=== PATIENT | male | born 1940 | race Caucasian/White ===

== ENCOUNTER 2016-11-02 10:26 | Outpatient (CLI) | payer MEDICARE, OTHER | END 2016-11-02 10:27 | disposition home or self-care (01) | DX: I48.0 Paroxysmal atrial fibrillation (principal) ==

== ENCOUNTER 2016-12-29 15:43 | Outpatient (CLI) | payer MEDICARE, OTHER | END 2016-12-29 15:44 | DX: I48.0 Paroxysmal atrial fibrillation (principal) ==

== ENCOUNTER 2017-01-05 10:49 | Outpatient (CLI) | payer MEDICARE, OTHER | END 2017-01-05 10:50 | disposition home or self-care (01) | DX: I48.0 Paroxysmal atrial fibrillation (principal) ==

== ENCOUNTER 2017-02-08 09:36 | Outpatient (CLI) | payer MEDICARE, OTHER | END 2017-02-08 09:37 | disposition home or self-care (01) | DX: I48.0 Paroxysmal atrial fibrillation (principal); I48.91 Unspecified atrial fibrillation; R73.01 Impaired fasting glucose; N18.9 Chronic kidney disease, unspecified; I25.10 Atherosclerotic heart disease of native coronary artery without angina pectoris; I50.9 Heart failure, unspecified; Z76.89 Persons encountering health services in other specified circumstances; D64.9 Anemia, unspecified; E78.5 Hyperlipidemia, unspecified; I12.9 Hypertensive chronic kidney disease with stage 1 through stage 4 chronic kidney disease, or unspecified chronic kidney disease ==

== ENCOUNTER 2017-02-21 10:38 | Outpatient (CLI) | payer MEDICARE, OTHER | END 2017-02-21 10:39 | disposition home or self-care (01) | DX: N40.1 Benign prostatic hyperplasia with lower urinary tract symptoms (principal); R97.20 Elevated prostate specific antigen [PSA] ==

== ENCOUNTER 2017-04-26 14:51 | Outpatient (CLI) | payer MEDICARE, OTHER | END 2017-04-26 14:52 | disposition home or self-care (01) | LOC: LAB.F 14:51 | PROVIDERS: ATTEND Family Medicine | DX: I48.0 Paroxysmal atrial fibrillation (principal) | CPT/HCPCS: 85610 ==

== ENCOUNTER 2017-05-27 10:14 | Outpatient (CLI) | payer MEDICARE, OTHER | END 2017-05-27 10:15 | disposition home or self-care (01) | LOC: LAB.F 10:14 | PROVIDERS: ATTEND Family Medicine | DX: I48.0 Paroxysmal atrial fibrillation (principal) | CPT/HCPCS: 85610 ==

== ENCOUNTER 2017-05-31 09:49 | Outpatient (CLI) | payer MEDICARE, OTHER ==
[2017-05-31 19:40] LABS: BUN - BLOOD UREA NITROGEN 28 mg/dL (6-20); CARBON DIOXIDE - CO2 29 mmol/L (21-32); CHLORIDE 104 mmol/L (101-111); CHOL/HDL RATIO 3.6 (<5.0); CHOLESTEROL 114 mg/dL; CREATININE 1.3 mg/dL (0.6-1.2); GFR - MDRD 53 (>89); GLUCOSE 95 mg/dL (70-100); HDL CHOLESTEROL 32 mg/dL; LDL CHOLESTEROL,DIRECT 70 mg/dL; LDL/HDL RATIO 1.8 (<3.6); PHOSPHORUS 2.9 mg/dL (2.5-4.6); SODIUM 141 mmol/L (135-145); TRIGLYCERIDES 129 mg/dL; VLDL CHOLESTEROL 26 mg/dL
== END 2017-05-31 09:50 | disposition home or self-care (01) ==
LOC: LAB.F 09:49
PROVIDERS: ATTEND Internal Medicine Cardiovascular Disease
DX: I50.22 Chronic systolic (congestive) heart failure (principal); E78.5 Hyperlipidemia, unspecified; I48.2 Chronic atrial fibrillation; I25.10 Atherosclerotic heart disease of native coronary artery without angina pectoris
CPT/HCPCS: 36415; 80061; 80069; 80162; 82550; 83880; 84450; 84460

== ENCOUNTER 2017-06-28 12:47 | Outpatient (CLI) | payer MEDICARE, OTHER | END 2017-06-28 12:48 | disposition home or self-care (01) | LOC: LAB.F 12:47 | PROVIDERS: ATTEND Family Medicine | DX: I48.0 Paroxysmal atrial fibrillation (principal) | CPT/HCPCS: 85610 ==

== ENCOUNTER 2017-08-01 14:01 | Outpatient (CLI) | payer MEDICARE, OTHER | END 2017-08-01 14:02 | disposition home or self-care (01) | LOC: LAB.F 14:01 | PROVIDERS: ATTEND Family Medicine | DX: I48.0 Paroxysmal atrial fibrillation (principal) | CPT/HCPCS: 85610 ==

== ENCOUNTER 2017-08-26 13:12 | Outpatient (CLI) | payer MEDICARE, OTHER | END 2017-08-26 13:13 | disposition home or self-care (01) | LOC: LAB.F 13:12 | PROVIDERS: ATTEND Family Medicine | DX: I48.0 Paroxysmal atrial fibrillation (principal) | CPT/HCPCS: 85610 ==

== ENCOUNTER 2017-09-27 10:10 | Outpatient (CLI) | payer MEDICARE, OTHER | END 2017-09-27 10:11 | disposition home or self-care (01) | LOC: LAB.F 10:10 | PROVIDERS: ATTEND Family Medicine | DX: I48.0 Paroxysmal atrial fibrillation (principal) | CPT/HCPCS: 85610 ==

== ENCOUNTER 2017-10-27 13:21 | Outpatient (CLI) | payer MEDICARE, OTHER | END 2017-10-27 13:22 | disposition home or self-care (01) | LOC: LAB.F 13:21 | PROVIDERS: ATTEND Family Medicine | DX: I48.0 Paroxysmal atrial fibrillation (principal) | CPT/HCPCS: 85610 ==

== ENCOUNTER 2017-12-09 13:23 | Outpatient (CLI) | payer MEDICARE, OTHER | END 2017-12-09 13:24 | disposition home or self-care (01) | LOC: LAB.F 13:23 | PROVIDERS: ATTEND Family Medicine | DX: I48.0 Paroxysmal atrial fibrillation (principal) | CPT/HCPCS: 85610 ==

== ENCOUNTER 2017-12-23 09:55 | Outpatient (CLI) | payer MEDICARE, OTHER | END 2017-12-23 09:56 | disposition home or self-care (01) | LOC: LAB.F 09:55 | PROVIDERS: ATTEND Family Medicine | DX: I48.0 Paroxysmal atrial fibrillation (principal) | CPT/HCPCS: 85610 ==

== ENCOUNTER 2018-01-27 10:58 | Outpatient (CLI) | payer MEDICARE, OTHER | END 2018-01-27 10:59 | disposition home or self-care (01) | LOC: LAB.F 10:58 | PROVIDERS: ATTEND Family Medicine | DX: I48.0 Paroxysmal atrial fibrillation (principal) | CPT/HCPCS: 85610 ==

== ENCOUNTER 2018-01-30 10:00 | Outpatient (CLI) | payer MEDICARE, OTHER ==
[2018-01-30 17:38] LABS: BILIRUBIN,URINE NEGATIVE (NEGATIVE); GLUCOSE, URINE (UA) NEGATIVE (NEGATIVE); KETONES,URINE (UA) NEGATIVE (NEGATIVE); LEUKOCYTE ESTERASE, URINE SMALL (NEGATIVE); NITRITE,URINE NEGATIVE (NEGATIVE); OCCULT BLOOD,URINE NEGATIVE (NEGATIVE); PROTEIN,URINE NEGATIVE (NEGATIVE); UROBILINOGEN,URINE 0.2 (NORMAL) E.U./dL (NORMAL)
[2018-01-30 17:58] LABS: BASOPHILS % (AUTO) 0.3 %; EOSINOPHILS # (AUTO) 0.1 10^3/uL (0.0-0.7); EOSINOPHILS % (AUTO) 1.4 %; LYMPHOCYTES # (AUTO) 2.2 10^3/uL (1.5-3.5); LYMPHOCYTES % (AUTO) 26.1 %; MEAN CORPUSCULAR HEMOGLOBIN 30.5 pg (27.0-31.0); MEAN CORPUSCULAR HGB CONC 32.9 g/dL (32.0-36.0); MEAN CORPUSCULAR VOLUME 92.5 fL (80.0-94.0); MEAN PLATELET VOLUME 10.3 fL (7.4-11.4); MONOCYTES # (AUTO) 0.7 10^3/uL (0.0-1.0); MONOCYTES % (AUTO) 8.9 %; NEUTROPHILS # (AUTO) 5.2 10^3/uL (1.5-6.6); NEUTROPHILS % (AUTO) 63.3 %; PLT - PLATELET COUNT 133 10^3/uL (130-450); RED BLOOD COUNT 4.61 10^6/uL (4.70-6.10); RED CELL DISTRIBUTION WIDTH 14.1 % (12.0-15.0); WHITE BLOOD COUNT 8.3 x10^3/uL (4.8-10.8)
[2018-01-30 18:25] LABS: ALBUMIN 3.8 g/dL (3.2-5.5); ALBUMIN/GLOBULIN RATIO 1.4 (1.0-2.2); ALKALINE PHOSPHATASE 57 IU/L (42-121); ALT ALANINE AMINOTRANSFERASE 28 IU/L (10-60); AST ASPARTATE AMINOTRANSFERASE 26 IU/L (10-42); BUN - BLOOD UREA NITROGEN 23 mg/dL (6-20); CALCIUM 8.7 mg/dL (8.5-10.3); CARBON DIOXIDE - CO2 28 mmol/L (21-32); CHLORIDE 106 mmol/L (101-111); CHOL/HDL RATIO 3.5 (<5.0); CHOLESTEROL 106 mg/dL; CREATININE 1.4 mg/dL (0.6-1.2); GFR - MDRD 49 (>89); GLUCOSE 100 mg/dL (70-100); HDL CHOLESTEROL 30 mg/dL; LDL CHOLESTEROL,CALCULATED 55 mg/dL; LDL/HDL RATIO 1.8 (<3.6); SODIUM 141 mmol/L (135-145); TOTAL PROTEIN 6.5 g/dL (6.7-8.2); VLDL CHOLESTEROL 21 mg/dL
[2018-01-30 18:32] LABS: CLARITY,URINE CLEAR (CLEAR)
[2018-01-30 18:50] LABS: BACTERIA,URINE None Seen /HPF (None Seen); RBC,URINE None Seen /HPF (0-5); SQUAMOUS EPITHELIAL CELL,UR NONE SEEN (<= Few)
[2018-01-30 18:51] LABS: CASTS, URINE 0-2 Hyaline Casts /LPF; MUCUS,URINE Few Strands
[2018-01-30 19:19] LABS: HB2 TOTAL 15.1 g/dL; HEMOGLOBIN A1C 0.61 g/dL; HEMOGLOBIN A1C % 5.8 % (4.6-6.2)
== END 2018-01-30 10:01 | disposition home or self-care (01) ==
LOC: LAB.F 10:00
PROVIDERS: ATTEND Family Medicine
DX: I25.10 Atherosclerotic heart disease of native coronary artery without angina pectoris (principal); R73.01 Impaired fasting glucose; E78.5 Hyperlipidemia, unspecified; I48.91 Unspecified atrial fibrillation; N18.9 Chronic kidney disease, unspecified; I12.9 Hypertensive chronic kidney disease with stage 1 through stage 4 chronic kidney disease, or unspecified chronic kidney disease; R97.20 Elevated prostate specific antigen [PSA]
CPT/HCPCS: 36415; 80053; 80061; 81001; 83036; 83721; 84153; 85025

== ENCOUNTER 2018-02-02 08:00 | Outpatient (CLI) | payer MEDICARE, OTHER | END 2018-02-02 23:59 | disposition home or self-care (01) | LOC: LAB.R 08:00 | PROVIDERS: ATTEND Family Medicine | DX: N39.0 Urinary tract infection, site not specified (principal); I48.91 Unspecified atrial fibrillation; N18.9 Chronic kidney disease, unspecified; I12.9 Hypertensive chronic kidney disease with stage 1 through stage 4 chronic kidney disease, or unspecified chronic kidney disease | CPT/HCPCS: 87077; 87086 ==

== ENCOUNTER 2018-02-28 12:17 | Outpatient (CLI) | payer MEDICARE, OTHER | END 2018-02-28 12:18 | disposition home or self-care (01) | LOC: LAB.F 12:17 | PROVIDERS: ATTEND Family Medicine | DX: I48.0 Paroxysmal atrial fibrillation (principal) | CPT/HCPCS: 85610 ==

== ENCOUNTER 2018-04-06 11:31 | Outpatient (CLI) | payer MEDICARE, OTHER | END 2018-04-06 11:32 | disposition home or self-care (01) | LOC: LAB.F 11:31 | PROVIDERS: ATTEND Family Medicine | DX: I48.0 Paroxysmal atrial fibrillation (principal) | CPT/HCPCS: 85610 ==

== ENCOUNTER 2018-05-01 13:57 | Outpatient (CLI) | payer MEDICARE, OTHER | END 2018-05-01 13:58 | disposition home or self-care (01) | LOC: LAB.F 13:57 | PROVIDERS: ATTEND Family Medicine | DX: I48.0 Paroxysmal atrial fibrillation (principal) | CPT/HCPCS: 85610 ==

== ENCOUNTER 2018-05-15 11:04 | Outpatient (CLI) | payer MEDICARE, OTHER | END 2018-05-15 11:05 | disposition home or self-care (01) | LOC: LAB.F 11:04 | PROVIDERS: ATTEND Family Medicine | DX: I48.0 Paroxysmal atrial fibrillation (principal) | CPT/HCPCS: 85610 ==

== ENCOUNTER 2018-05-23 10:25 | Outpatient (CLI) | payer MEDICARE, OTHER | END 2018-05-23 10:26 | disposition home or self-care (01) | LOC: LAB.F 10:25 | PROVIDERS: ATTEND Family Medicine | DX: I48.0 Paroxysmal atrial fibrillation (principal) | CPT/HCPCS: 85610 ==

== ENCOUNTER 2018-06-20 13:23 | Outpatient (CLI) | payer MEDICARE, OTHER | END 2018-06-20 13:24 | disposition home or self-care (01) | LOC: LAB.F 13:23 | PROVIDERS: ATTEND Family Medicine | DX: I48.0 Paroxysmal atrial fibrillation (principal) | CPT/HCPCS: 85610 ==

== ENCOUNTER 2018-07-02 11:42 | Outpatient (CLI) | payer MEDICARE, OTHER | END 2018-07-02 11:43 | disposition home or self-care (01) | LOC: LAB 11:42 | PROVIDERS: ATTEND Family Medicine | DX: I48.0 Paroxysmal atrial fibrillation (principal) | CPT/HCPCS: 85610 ==

== ENCOUNTER 2018-07-10 11:33 | Outpatient (CLI) | payer MEDICARE, OTHER ==
--- NOTE | 2018-07-10 13:02 | CT Report ---
Reason: HISTORY OF UTI Procedure Date: 07/10/2018 Accession Number: [id number] / [id number] Procedure: CT - Abdomen/Pelvis W/O CPT Code: FULL RESULT: EXAM: CT ABDOMEN AND PELVIS EXAM DATE: 07/10/2018 11:56 AM. CLINICAL HISTORY: HISTORY OF UTI. COMPARISONS: None. TECHNIQUE: Routine helical CT imaging was performed through the abdomen and pelvis. IV contrast: No. Enteric contrast: No. Reconstructions: Coronal and sagittal. In accordance with CT protocol optimization, one or more of the following dose reduction techniques were utilized for this exam: automated exposure control, adjustment of mA and/or KV based on patient size, or use of iterative reconstructive technique. FINDINGS: Lung Bases: There is a calcified granuloma of the right lung base. ICD is noted. Liver: Fluid attenuating foci in the right lobe of the liver measure up to 1.4 cm, likely cysts. Similar fluid attenuating focus in the left lobe of the liver measures 1.4 cm. A 5 mm low-attenuation focus in the left lobe of the liver is too small to characterize. Normal liver contour. Gallbladder/Bile Ducts: Unremarkable. Spleen: Normal. Pancreas: Intercalated fat of the pancreas is of unlikely significance. Adrenal Glands: Normal. Kidneys: Bilateral low attenuating lesions in the kidneys are favored to represent cysts. Peritoneal Cavity/Bowel: No free fluid, free air or adenopathy. No masses or acute inflammatory process. The appendix is well visualized and has a normal CT appearance. The prostate measures 6.6 x 6.3 cm. The bladder appears unremarkable. Vasculature: No aneurysms or other significant abnormality. Bones: No bone lesions. Other: There is a fat-containing right inguinal hernia. There is a fat-containing umbilical hernia. Vasectomy clips are noted. IMPRESSION: Prostatomegaly. No urologic stones. No other urologic obstructive findings. RADIA
== END 2018-07-10 11:34 | disposition home or self-care (01) ==
LOC: DI 11:33
PROVIDERS: ATTEND Urology
DX: N40.0 Benign prostatic hyperplasia without lower urinary tract symptoms (principal); Z87.440 Personal history of urinary (tract) infections
CPT/HCPCS: 74176

== ENCOUNTER 2018-07-14 10:32 | Outpatient (CLI) | payer MEDICARE, OTHER | END 2018-07-14 10:33 | disposition home or self-care (01) | LOC: LAB.F 10:32 | PROVIDERS: ATTEND Internal Medicine | DX: I48.91 Unspecified atrial fibrillation (principal) | CPT/HCPCS: 85610 ==

== ENCOUNTER 2018-07-18 13:08 | Outpatient (CLI) | payer MEDICARE, OTHER | END 2018-07-18 13:09 | disposition home or self-care (01) | LOC: LAB.F 13:08 | PROVIDERS: ATTEND Internal Medicine | DX: I48.91 Unspecified atrial fibrillation (principal); R97.20 Elevated prostate specific antigen [PSA] | CPT/HCPCS: 36415; 84153 ==

== ENCOUNTER 2018-08-18 13:27 | Outpatient (CLI) | payer MEDICARE, OTHER | END 2018-08-18 13:28 | disposition home or self-care (01) | LOC: LAB.F 13:27 | PROVIDERS: ATTEND Internal Medicine | DX: I48.91 Unspecified atrial fibrillation (principal) | CPT/HCPCS: 85610 ==

== ENCOUNTER 2018-08-25 10:59 | Outpatient (CLI) | payer MEDICARE, OTHER | END 2018-08-25 11:00 | disposition home or self-care (01) | LOC: LAB.F 10:59 | PROVIDERS: ATTEND Internal Medicine | DX: I48.91 Unspecified atrial fibrillation (principal) | CPT/HCPCS: 85610 ==

== ENCOUNTER 2018-09-05 10:11 | Outpatient (CLI) | payer MEDICARE, OTHER | END 2018-09-05 10:12 | disposition home or self-care (01) | LOC: LAB 10:11 | PROVIDERS: ATTEND Internal Medicine | DX: I48.91 Unspecified atrial fibrillation (principal) | CPT/HCPCS: 85610 ==

== ENCOUNTER 2018-09-12 10:09 | Outpatient (CLI) | payer MEDICARE, OTHER ==
[2018-09-12 17:58] LABS: INR 2.4 (0.8-1.2); PT - PROTHROMBIN TIME 27.4 secs (9.9-12.6)
== END 2018-09-12 10:10 | disposition home or self-care (01) ==
LOC: LAB.F 10:09
PROVIDERS: ATTEND Internal Medicine
DX: I48.91 Unspecified atrial fibrillation (principal)
CPT/HCPCS: 36415; 85610

== ENCOUNTER 2018-09-18 11:33 | Outpatient (CLI) | payer MEDICARE, OTHER | END 2018-09-18 11:34 | disposition home or self-care (01) | LOC: LAB.F 11:33 | PROVIDERS: ATTEND Internal Medicine | DX: I48.91 Unspecified atrial fibrillation (principal) | CPT/HCPCS: 85610 ==

== ENCOUNTER 2018-10-02 13:26 | Outpatient (CLI) | payer MEDICARE, OTHER | END 2018-10-02 13:27 | disposition home or self-care (01) | LOC: LAB.F 13:26 | PROVIDERS: ATTEND Internal Medicine | DX: I48.91 Unspecified atrial fibrillation (principal) | CPT/HCPCS: 85610 ==

== ENCOUNTER 2018-11-02 10:37 | Outpatient (CLI) | payer MEDICARE, OTHER | END 2018-11-02 10:38 | disposition home or self-care (01) | LOC: LAB.F 10:37 | PROVIDERS: ATTEND Internal Medicine | DX: I48.91 Unspecified atrial fibrillation (principal) | CPT/HCPCS: 85610 ==

== ENCOUNTER 2018-12-12 13:21 | Outpatient (CLI) | payer MEDICARE, OTHER | END 2018-12-12 13:22 | disposition home or self-care (01) | LOC: LAB.F 13:21 | PROVIDERS: ATTEND Internal Medicine | DX: I48.91 Unspecified atrial fibrillation (principal) | CPT/HCPCS: 85610 ==

== ENCOUNTER 2018-12-19 15:22 | Outpatient (CLI) | payer MEDICARE, OTHER | END 2018-12-19 15:23 | disposition home or self-care (01) | LOC: LAB.F 15:22 | PROVIDERS: ATTEND Internal Medicine | DX: I48.91 Unspecified atrial fibrillation (principal) | CPT/HCPCS: 85610 ==

== ENCOUNTER 2018-12-26 13:13 | Outpatient (CLI) | payer MEDICARE, OTHER | END 2018-12-26 13:14 | disposition home or self-care (01) | LOC: LAB.F 13:13 | PROVIDERS: ATTEND Internal Medicine | DX: I48.91 Unspecified atrial fibrillation (principal) | CPT/HCPCS: 85610 ==

== ENCOUNTER 2019-01-02 08:00 | Outpatient (CLI) | payer MEDICARE, OTHER | END 2019-01-02 23:59 | disposition home or self-care (01) | LOC: LAB.F 08:00 | PROVIDERS: ATTEND Internal Medicine | DX: I48.91 Unspecified atrial fibrillation (principal) | CPT/HCPCS: 85610 ==

== ENCOUNTER 2019-01-08 15:42 | Outpatient (CLI) | payer MEDICARE, OTHER | END 2019-01-08 23:59 | disposition home or self-care (01) | LOC: LAB.R 15:42 | PROVIDERS: ATTEND Physician Assistant Medical | DX: N39.0 Urinary tract infection, site not specified (principal) | CPT/HCPCS: 87086 ==

== ENCOUNTER 2019-01-09 13:24 | Outpatient (CLI) | payer MEDICARE, OTHER | END 2019-01-09 13:25 | disposition home or self-care (01) | LOC: LAB.F 13:24 | PROVIDERS: ATTEND Internal Medicine | DX: I48.91 Unspecified atrial fibrillation (principal) | CPT/HCPCS: 85610 ==

== ENCOUNTER 2019-01-15 13:58 | Outpatient (CLI) | payer MEDICARE, OTHER | END 2019-01-15 13:59 | disposition home or self-care (01) | LOC: LAB.F 13:58 | PROVIDERS: ATTEND Internal Medicine | DX: I48.91 Unspecified atrial fibrillation (principal) | CPT/HCPCS: 85610 ==

== ENCOUNTER 2019-03-05 13:21 | Outpatient (CLI) | payer MEDICARE, OTHER | END 2019-03-05 13:22 | disposition home or self-care (01) | LOC: LAB.F 13:21 | PROVIDERS: ATTEND Internal Medicine | DX: I48.91 Unspecified atrial fibrillation (principal) | CPT/HCPCS: 85610 ==

== ENCOUNTER 2019-03-12 12:02 | Outpatient (CLI) | payer MEDICARE, OTHER | END 2019-03-12 12:03 | disposition home or self-care (01) | LOC: LAB.F 12:02 | PROVIDERS: ATTEND Internal Medicine | DX: I48.91 Unspecified atrial fibrillation (principal) | CPT/HCPCS: 85610 ==

== ENCOUNTER 2019-03-20 08:19 | Outpatient (CLI) | payer MEDICARE, OTHER | END 2019-03-20 08:20 | disposition home or self-care (01) | LOC: LAB.F 08:19 | PROVIDERS: ATTEND Internal Medicine | DX: I48.91 Unspecified atrial fibrillation (principal) | CPT/HCPCS: 85610 ==

== ENCOUNTER 2019-04-03 10:29 | Outpatient (CLI) | payer MEDICARE, OTHER | END 2019-04-03 10:30 | disposition home or self-care (01) | LOC: LAB.F 10:29 | PROVIDERS: ATTEND Urology | DX: R97.20 Elevated prostate specific antigen [PSA] (principal) | CPT/HCPCS: 36415; 84153 ==

== ENCOUNTER 2019-04-18 10:14 | Outpatient (CLI) | payer MEDICARE, OTHER | END 2019-04-18 10:15 | disposition home or self-care (01) | LOC: LAB.F 10:14 | PROVIDERS: ATTEND Internal Medicine | DX: I48.91 Unspecified atrial fibrillation (principal) | CPT/HCPCS: 85610 ==

== ENCOUNTER 2019-05-17 10:16 | Outpatient (CLI) | payer MEDICARE, OTHER | END 2019-05-17 10:17 | disposition home or self-care (01) | LOC: LAB.F 10:16 | PROVIDERS: ATTEND Internal Medicine | DX: I48.91 Unspecified atrial fibrillation (principal) | CPT/HCPCS: 85610 ==

== ENCOUNTER 2019-06-18 10:34 | Outpatient (CLI) | payer MEDICARE, OTHER | END 2019-06-18 10:35 | disposition home or self-care (01) | LOC: LAB.S 10:34 | PROVIDERS: ATTEND Internal Medicine | DX: I48.91 Unspecified atrial fibrillation (principal) | CPT/HCPCS: 85610 ==

== ENCOUNTER 2019-06-29 10:26 | Outpatient (CLI) | payer MEDICARE, OTHER ==
[2019-06-29 18:12] LABS: ALBUMIN 3.6 g/dL (3.2-5.5); ALBUMIN/GLOBULIN RATIO 1.2 (1.0-2.2); ALKALINE PHOSPHATASE 58 IU/L (42-121); ALT ALANINE AMINOTRANSFERASE 21 IU/L (10-60); AST ASPARTATE AMINOTRANSFERASE 21 IU/L (10-42); BILIRUBIN,TOTAL 1.1 mg/dL (0.2-1.0); BUN - BLOOD UREA NITROGEN 21 mg/dL (6-20); CALCIUM 8.9 mg/dL (8.5-10.3); CARBON DIOXIDE - CO2 27 mmol/L (21-32); CHLORIDE 109 mmol/L (101-111); CHOL/HDL RATIO 4.3 (<5.0); CHOLESTEROL 138 mg/dL; CREATININE 1.3 mg/dL (0.6-1.2); DIGOXIN 0.8 ng/mL; GFR - MDRD 53 (>89); GLUCOSE 102 mg/dL (70-100); HDL CHOLESTEROL 32 mg/dL; LDL CHOLESTEROL,CALCULATED 86 mg/dL; LDL/HDL RATIO 2.7 (<3.6); SODIUM 143 mmol/L (135-145); TOTAL PROTEIN 6.6 g/dL (6.7-8.2); VLDL CHOLESTEROL 20 mg/dL
== END 2019-06-29 10:27 | disposition home or self-care (01) ==
LOC: LAB.S 10:26
PROVIDERS: ATTEND Internal Medicine Cardiovascular Disease
DX: I48.91 Unspecified atrial fibrillation (principal); I50.22 Chronic systolic (congestive) heart failure; E78.5 Hyperlipidemia, unspecified
CPT/HCPCS: 36415; 80053; 80061; 80162; 81599; 82172; 83721; 83880; 85610

== ENCOUNTER 2019-07-06 09:13 | Outpatient (CLI) | payer MEDICARE, OTHER | END 2019-07-06 09:14 | disposition home or self-care (01) | LOC: LAB.S 09:13 | PROVIDERS: ATTEND Internal Medicine | DX: I48.91 Unspecified atrial fibrillation (principal) | CPT/HCPCS: 85610 ==

== ENCOUNTER 2019-07-16 10:33 | Outpatient (CLI) | payer MEDICARE, OTHER ==
[2019-07-16 17:41] LABS: CALCIUM 9.4 mg/dL (8.5-10.3); CREATININE 1.1 mg/dL (0.6-1.2)
== END 2019-07-16 10:34 | disposition home or self-care (01) ==
LOC: LAB.S 10:33
PROVIDERS: ATTEND Internal Medicine Cardiovascular Disease
DX: I25.10 Atherosclerotic heart disease of native coronary artery without angina pectoris (principal); I25.5 Ischemic cardiomyopathy; I50.22 Chronic systolic (congestive) heart failure
CPT/HCPCS: 36415; 80048; 83880

== ENCOUNTER 2019-08-21 13:15 | Outpatient (CLI) | payer MEDICARE, OTHER ==
[2019-08-21 17:52] LABS: ALBUMIN 3.8 g/dL (3.2-5.5); ALBUMIN/GLOBULIN RATIO 1.3 (1.0-2.2); ALKALINE PHOSPHATASE 60 IU/L (42-121); ALT ALANINE AMINOTRANSFERASE 25 IU/L (10-60); AST ASPARTATE AMINOTRANSFERASE 23 IU/L (10-42); BILIRUBIN,TOTAL 0.8 mg/dL (0.2-1.0); BUN - BLOOD UREA NITROGEN 17 mg/dL (6-20); CALCIUM 8.5 mg/dL (8.5-10.3); CARBON DIOXIDE - CO2 29 mmol/L (21-32); CHLORIDE 111 mmol/L (101-111); CHOL/HDL RATIO 3.1 (<5.0); CHOLESTEROL 99 mg/dL; CREATININE 1.2 mg/dL (0.6-1.2); GFR - MDRD 58 (>89); GLUCOSE 105 mg/dL (70-100); HDL CHOLESTEROL 32 mg/dL; LDL CHOLESTEROL,CALCULATED 43 mg/dL; LDL/HDL RATIO 1.3 (<3.6); SODIUM 146 mmol/L (135-145); TOTAL PROTEIN 6.7 g/dL (6.7-8.2); VLDL CHOLESTEROL 24 mg/dL
== END 2019-08-21 13:16 | disposition home or self-care (01) ==
LOC: LAB.S 13:15
PROVIDERS: ATTEND Internal Medicine Cardiovascular Disease
DX: I25.10 Atherosclerotic heart disease of native coronary artery without angina pectoris (principal); I50.22 Chronic systolic (congestive) heart failure; E78.5 Hyperlipidemia, unspecified
CPT/HCPCS: 36415; 80053; 80061; 81599; 82172; 83721

== ENCOUNTER 2019-09-04 08:00 | Outpatient (CLI) | payer MEDICARE, OTHER | END 2019-09-04 23:59 | disposition home or self-care (01) | LOC: LAB.S 08:00 | PROVIDERS: ATTEND Family Medicine | DX: J02.9 Acute pharyngitis, unspecified (principal) ==

== ENCOUNTER 2020-06-11 10:39 | Outpatient (CLI) | payer MEDICARE, OTHER ==
[2020-06-11 15:32] LABS: ALBUMIN 4.1 g/dL (3.2-5.5); ALBUMIN/GLOBULIN RATIO 1.3 (1.0-2.2); ALKALINE PHOSPHATASE 71 IU/L (42-121); ALT ALANINE AMINOTRANSFERASE 26 IU/L (10-60); AST ASPARTATE AMINOTRANSFERASE 25 IU/L (10-42); BUN - BLOOD UREA NITROGEN 23 mg/dL (6-20); CALCIUM 9.5 mg/dL (8.5-10.3); CARBON DIOXIDE - CO2 27 mmol/L (21-32); CHLORIDE 101 mmol/L (101-111); CHOL/HDL RATIO 3.6 (<5.0); CHOLESTEROL 104 mg/dL; CREATININE 1.3 mg/dL (0.6-1.2); GLUCOSE 107 mg/dL (70-100); HDL CHOLESTEROL 29 mg/dL; LDL CHOLESTEROL,CALCULATED 54 mg/dL; LDL/HDL RATIO 1.9 (<3.6); SODIUM 138 mmol/L (135-145); TOTAL PROTEIN 7.2 g/dL (6.7-8.2); VLDL CHOLESTEROL 21 mg/dL
== END 2020-06-11 10:40 | disposition home or self-care (01) ==
LOC: LAB.S 10:39
PROVIDERS: ATTEND Internal Medicine Cardiovascular Disease
DX: I25.10 Atherosclerotic heart disease of native coronary artery without angina pectoris (principal); I50.22 Chronic systolic (congestive) heart failure; E78.5 Hyperlipidemia, unspecified; I48.20 Chronic atrial fibrillation, unspecified
CPT/HCPCS: 36415; 80053; 80061; 81599; 82172; 83721; 83880

== ENCOUNTER 2021-04-08 08:44 | Outpatient (CLI) | payer MEDICARE, OTHER ==
[2021-04-08 15:44] LABS: BASOPHILS % (AUTO) 0.4 %; EOSINOPHILS # (AUTO) 0.1 10^3/uL (0.0-0.7); EOSINOPHILS % (AUTO) 1.6 %; HCT - HEMATOCRIT 43.3 % (42.0-52.0); HGB - HEMOGLOBIN 13.7 g/dL (14.0-18.0); LYMPHOCYTES # (AUTO) 1.6 10^3/uL (1.5-3.5); LYMPHOCYTES % (AUTO) 19.3 %; MEAN CORPUSCULAR HEMOGLOBIN 31.2 pg (27.0-31.0); MEAN CORPUSCULAR HGB CONC 31.6 g/dL (32.0-36.0); MEAN CORPUSCULAR VOLUME 98.6 fL (80.0-94.0); MEAN PLATELET VOLUME 11.7 fL (7.4-11.4); MONOCYTES # (AUTO) 0.8 10^3/uL (0.0-1.0); MONOCYTES % (AUTO) 9.3 %; NEUTROPHILS # (AUTO) 5.7 10^3/uL (1.5-6.6); NEUTROPHILS % (AUTO) 69.2 %; PLT - PLATELET COUNT 142 10^3/uL (130-450); RED BLOOD COUNT 4.39 10^6/uL (4.70-6.10); RED CELL DISTRIBUTION WIDTH 13.2 % (12.0-15.0); WHITE BLOOD COUNT 8.3 x10^3/uL (4.8-10.8)
[2021-04-08 15:55] LABS: ALBUMIN 4.4 g/dL (3.2-5.5); ALBUMIN/GLOBULIN RATIO 1.7 (1.0-2.2); ALKALINE PHOSPHATASE 63 IU/L (42-121); ALT ALANINE AMINOTRANSFERASE 22 IU/L (10-60); AST ASPARTATE AMINOTRANSFERASE 21 IU/L (10-42); BILIRUBIN,TOTAL 1.3 mg/dL (0.2-1.0); BUN - BLOOD UREA NITROGEN 20 mg/dL (6-20); CALCIUM 9.4 mg/dL (8.5-10.3); CARBON DIOXIDE - CO2 27 mmol/L (21-32); CHLORIDE 103 mmol/L (101-111); CHOL/HDL RATIO 3.6 (<5.0); CHOLESTEROL 100 mg/dL; CREATININE 1.2 mg/dL (0.6-1.2); GFR - MDRD 58 (>89); GLUCOSE 110 mg/dL (70-100); HDL CHOLESTEROL 28 mg/dL; LDL CHOLESTEROL,CALCULATED 53 mg/dL; LDL/HDL RATIO 1.9 (<3.6); POTASSIUM 4.4 mmol/L (3.5-5.0); SODIUM 139 mmol/L (135-145); TRIGLYCERIDES 96 mg/dL; VLDL CHOLESTEROL 19 mg/dL
== END 2021-04-08 08:45 | disposition home or self-care (01) ==
LOC: LAB.S 08:44
PROVIDERS: ATTEND Internal Medicine
DX: I10 Essential (primary) hypertension (principal); E78.5 Hyperlipidemia, unspecified
CPT/HCPCS: 36415; 80053; 80061; 83721; 85025

== ENCOUNTER 2021-10-05 13:09 | Outpatient (CLI) | payer MEDICARE, OTHER ==
[2021-10-05 20:03] LABS: BASOPHILS % (AUTO) 0.3 %; EOSINOPHILS # (AUTO) 0.2 10^3/uL (0.0-0.7); EOSINOPHILS % (AUTO) 1.8 %; HCT - HEMATOCRIT 43.9 % (42.0-52.0); LYMPHOCYTES % (AUTO) 21.6 %; MEAN CORPUSCULAR HEMOGLOBIN 31.7 pg (27.0-31.0); MEAN CORPUSCULAR HGB CONC 31.9 g/dL (32.0-36.0); MEAN CORPUSCULAR VOLUME 99.3 fL (80.0-94.0); MEAN PLATELET VOLUME 11.7 fL (7.4-11.4); MONOCYTES # (AUTO) 0.7 10^3/uL (0.0-1.0); MONOCYTES % (AUTO) 7.6 %; NEUTROPHILS # (AUTO) 6.2 10^3/uL (1.5-6.6); NEUTROPHILS % (AUTO) 68.4 %; PLT - PLATELET COUNT 131 10^3/uL (130-450); RED BLOOD COUNT 4.42 10^6/uL (4.70-6.10); RED CELL DISTRIBUTION WIDTH 13.5 % (12.0-15.0); WHITE BLOOD COUNT 9.1 x10^3/uL (4.8-10.8)
[2021-10-05 20:24] LABS: ALBUMIN 4.1 g/dL (3.2-5.5); ALBUMIN/GLOBULIN RATIO 1.5 (1.0-2.2); ALKALINE PHOSPHATASE 64 IU/L (42-121); ALT ALANINE AMINOTRANSFERASE 26 IU/L (10-60); AST ASPARTATE AMINOTRANSFERASE 23 IU/L (10-42); BILIRUBIN,TOTAL 1.2 mg/dL (0.2-1.0); BUN - BLOOD UREA NITROGEN 18 mg/dL (6-20); CALCIUM 9.1 mg/dL (8.5-10.3); CARBON DIOXIDE - CO2 29 mmol/L (21-32); CHLORIDE 105 mmol/L (101-111); CHOL/HDL RATIO 3.7 (<5.0); CHOLESTEROL 107 mg/dL; CREATININE 1.1 mg/dL (0.6-1.2); GFR - MDRD 64 (>89); GLUCOSE 107 mg/dL (70-100); HDL CHOLESTEROL 29 mg/dL; LDL CHOLESTEROL,CALCULATED 56 mg/dL; LDL/HDL RATIO 1.9 (<3.6); POTASSIUM 4.2 mmol/L (3.5-5.0); SODIUM 138 mmol/L (135-145); TOTAL PROTEIN 6.8 g/dL (6.7-8.2); TRIGLYCERIDES 108 mg/dL; VLDL CHOLESTEROL 22 mg/dL
== END 2021-10-05 13:10 | disposition home or self-care (01) ==
LOC: LAB.S 13:09
PROVIDERS: ATTEND Internal Medicine
DX: I10 Essential (primary) hypertension (principal); E78.5 Hyperlipidemia, unspecified; Z12.5 Encounter for screening for malignant neoplasm of prostate
CPT/HCPCS: 36415; 80053; 80061; 85025; G0103; 83721; 84153

== ENCOUNTER 2021-12-14 09:27 | Outpatient (CLI) | payer MEDICARE, OTHER ==
[2021-12-14 15:25] LABS: ALBUMIN 3.8 g/dL (3.2-5.5); ALBUMIN/GLOBULIN RATIO 1.4 (1.0-2.2); ALKALINE PHOSPHATASE 54 IU/L (42-121); ALT ALANINE AMINOTRANSFERASE 21 IU/L (10-60); AST ASPARTATE AMINOTRANSFERASE 18 IU/L (10-42); BILIRUBIN,TOTAL 0.8 mg/dL (0.2-1.0); BUN - BLOOD UREA NITROGEN 20 mg/dL (6-20); CALCIUM 8.7 mg/dL (8.5-10.3); CARBON DIOXIDE - CO2 26 mmol/L (21-32); CHLORIDE 105 mmol/L (101-111); CHOL/HDL RATIO 3.3 (<5.0); CHOLESTEROL 100 mg/dL; CK- CREATINE KINASE 35 IU/L (22-269); CREATININE 1.2 mg/dL (0.6-1.2); DIGOXIN 1.1 ng/mL; GFR - MDRD 58 (>89); GLUCOSE 118 mg/dL (70-100); HDL CHOLESTEROL 30 mg/dL; LDL CHOLESTEROL,CALCULATED 53 mg/dL; LDL CHOLESTEROL,DIRECT 54 mg/dL; LDL/HDL RATIO 1.8 (<3.6); SODIUM 139 mmol/L (135-145); TOTAL PROTEIN 6.6 g/dL (6.7-8.2); TRIGLYCERIDES 83 mg/dL; VLDL CHOLESTEROL 17 mg/dL
== END 2021-12-14 09:28 | disposition home or self-care (01) ==
LOC: LAB.S 09:27
PROVIDERS: ATTEND Internal Medicine Cardiovascular Disease
DX: I50.22 Chronic systolic (congestive) heart failure (principal); E78.5 Hyperlipidemia, unspecified; I48.20 Chronic atrial fibrillation, unspecified
CPT/HCPCS: 36415; 80053; 80061; 80162; 81599; 82550; 83721

== ENCOUNTER 2022-05-19 09:48 | Outpatient (CLI) | payer MEDICARE, OTHER ==
[2022-05-19 14:36] LABS: BASOPHILS % (AUTO) 0.4 %; EOSINOPHILS # (AUTO) 0.1 10^3/uL (0.0-0.7); EOSINOPHILS % (AUTO) 1.6 %; HCT - HEMATOCRIT 43.1 % (42.0-52.0); HGB - HEMOGLOBIN 13.8 g/dL (14.0-18.0); LYMPHOCYTES # (AUTO) 1.6 10^3/uL (1.5-3.5); LYMPHOCYTES % (AUTO) 18.8 %; MEAN CORPUSCULAR HEMOGLOBIN 31.9 pg (27.0-31.0); MEAN CORPUSCULAR VOLUME 99.5 fL (80.0-94.0); MEAN PLATELET VOLUME 11.5 fL (7.4-11.4); MONOCYTES # (AUTO) 0.8 10^3/uL (0.0-1.0); MONOCYTES % (AUTO) 9.6 %; NEUTROPHILS # (AUTO) 5.9 10^3/uL (1.5-6.6); NEUTROPHILS % (AUTO) 69.4 %; PLT - PLATELET COUNT 118 10^3/uL (130-450); RED BLOOD COUNT 4.33 10^6/uL (4.70-6.10); RED CELL DISTRIBUTION WIDTH 13.2 % (12.0-15.0); WHITE BLOOD COUNT 8.5 x10^3/uL (4.8-10.8)
[2022-05-19 15:04] LABS: ALBUMIN 3.8 g/dL (3.2-5.5); ALBUMIN/GLOBULIN RATIO 1.3 (1.0-2.2); CALCIUM 9.3 mg/dL (8.5-10.3); CREATININE 1.3 mg/dL (0.6-1.2); POTASSIUM 4.3 mmol/L (3.5-5.0); TOTAL PROTEIN 6.7 g/dL (6.7-8.2)
== END 2022-05-19 09:49 | disposition home or self-care (01) ==
LOC: LAB.S 09:48
PROVIDERS: ATTEND Registered Nurse
DX: I11.0 Hypertensive heart disease with heart failure (principal); I25.10 Atherosclerotic heart disease of native coronary artery without angina pectoris; I50.9 Heart failure, unspecified; R97.20 Elevated prostate specific antigen [PSA]
CPT/HCPCS: 36415; 80053; 83880; 84153; 85025

== ENCOUNTER 2022-08-23 08:00 | Outpatient (CLI) | payer MEDICARE, OTHER | END 2022-08-23 23:59 | disposition home or self-care (01) | LOC: LAB.S 08:00 | PROVIDERS: ATTEND Physician Assistant | DX: R30.0 Dysuria (principal) | CPT/HCPCS: 87086 ==

== ENCOUNTER 2022-08-31 11:50 | Outpatient (CLI) | payer MEDICARE, OTHER ==
[2022-08-31 14:36] LABS: ALBUMIN 3.3 g/dL (3.2-5.5); BILIRUBIN,DIRECT 0.2 mg/dL (0.1-0.5); TOTAL PROTEIN 7.1 g/dL (6.7-8.2)
== END 2022-08-31 11:51 | disposition home or self-care (01) ==
LOC: LAB.S 11:50
PROVIDERS: ATTEND Physician Assistant Medical
DX: B35.1 Tinea unguium (principal); Z79.899 Other long term (current) drug therapy
CPT/HCPCS: 36415; 80076

== ENCOUNTER 2022-09-08 14:52 | Emergency (ER) | payer MEDICARE, OTHER ==
[2022-09-08 15:16] VITALS: BP 128/94
[2022-09-08 16:17] LABS: B. PARAPERTUSSIS- RESP PCR PAN NOT DETECTED; B. PERTUSSIS- RESP PCR PANEL NOT DETECTED; C. PNEUMONIAE- RESP PCR PANEL NOT DETECTED; CORONAVIRUS 229E-RESP PCR NOT DETECTED; CORONAVIRUS HKU1-RESP PCR NOT DETECTED; CORONAVIRUS NL63-RESP PCR NOT DETECTED; CORONAVIRUS OC43-RESP PCR NOT DETECTED; HUMAN METAPNEUMOVIRUS NOT DETECTED; INFLUENZA A- RESP PCR PANEL NOT DETECTED; INFLUENZA B - RESP PCR PANEL NOT DETECTED; M. PNEUMONIAE- RESP PCR PANEL NOT DETECTED; PARAINFLUENZA VIRUS 1 NOT DETECTED; PARAINFLUENZA VIRUS 2 NOT DETECTED; PARAINFLUENZA VIRUS 3 NOT DETECTED; PARAINFLUENZA VIRUS 4 NOT DETECTED; RHINOVIRUS/ENTEROVIRUS NOT DETECTED; RSV- RESP PCR PANEL NOT DETECTED; SARS-CoV-2 -RESP PCR PANEL NOT DETECTED
== END 2022-09-08 17:00 | disposition left against medical advice (07) ==
LOC: ED 14:52
DX: Z53.21 Procedure and treatment not carried out due to patient leaving prior to being seen by health care provider (principal)
CPT/HCPCS: 87633

== ENCOUNTER 2022-09-09 11:14 | Outpatient (CLI) | payer MEDICARE, OTHER ==
--- NOTE | 2022-09-09 16:13 | XRAY Report ---
PROCEDURE: Chest 2 View X-Ray INDICATIONS: COUGH TECHNIQUE: PA and lateral chest. COMPARISON: None. FINDINGS: There is a moderate infiltrate at the patient's right lung base with associated small to moderate siz e right pleural effusion. There is mild atelectasis versus infiltrate at the patient's left lung base. Upper lung zones are clear. Heart and mediastinal contours appear within normal limits. Pulmonary vas cularity appears within normal limits for low volumes. Patient is status post prior CABG. There is a left-sided pacing device with leads in standard position. IMPRESSION: 1. Moderate size focal infiltrate at the patient's right lung base with associated [id number] size right pleural effusion. 2. Mild left lower lobe atelectasis versus infiltrate. 3. Low lung volumes vascular crowding. Reviewed by: William Warner MD on 09/09/2022 4:12 PM PST Approved by: William Warner MD on 09/09/2022 4:12 PM PST Station ID: [id number]
== END 2022-09-09 11:15 | disposition home or self-care (01) ==
LOC: DI.S 11:14
PROVIDERS: ATTEND Physician Assistant
DX: R05.9 Cough, unspecified (principal); J90 Pleural effusion, not elsewhere classified

== ENCOUNTER 2022-09-15 15:51 | Emergency (ER) | payer MEDICARE, OTHER ==
[2022-09-15 16:46] LABS: BASOPHILS % (AUTO) 0.3 %; EOSINOPHILS % (AUTO) 0.4 %; HCT - HEMATOCRIT 40.5 % (42.0-52.0); LYMPHOCYTES % (AUTO) 6.9 %; MEAN CORPUSCULAR HEMOGLOBIN 30.4 pg (27.0-31.0); MEAN CORPUSCULAR HGB CONC 32.1 g/dL (32.0-36.0); MEAN CORPUSCULAR VOLUME 94.8 fL (80.0-94.0); MONOCYTES % (AUTO) 4.7 %; NEUTROPHILS % (AUTO) 85.1 %; PLT - PLATELET COUNT 284 10^3/uL (130-450); RED BLOOD COUNT 4.27 10^6/uL (4.70-6.10); RED CELL DISTRIBUTION WIDTH 13.8 % (12.0-15.0); WHITE BLOOD COUNT 29.6 x10^3/uL (4.8-10.8)
[2022-09-15 16:48] LABS: ABNORMAL LYMPHS % (MANUAL) 0 %
[2022-09-15 16:51] LABS: ALBUMIN 2.4 g/dL (3.2-5.5); ALBUMIN/GLOBULIN RATIO 0.5 (1.0-2.2); BILIRUBIN,TOTAL 1.1 mg/dL (0.2-1.0); CREATININE 1.3 mg/dL (0.6-1.2); POTASSIUM 4.3 mmol/L (3.5-5.0); TOTAL PROTEIN 7.4 g/dL (6.7-8.2)
[2022-09-15] MEDS ORDERED: iohexoL-300 100 ML VIAL ONE (17:13)
[2022-09-15 17:16] LABS: BAND NEUTROPHILS % (MANUAL) 4 %; EOSINOPHILS # (MANUAL) 0.6 10^3/uL (0-0.7); LYMPHOCYTES # (MANUAL) 1.2 10^3/uL (1.5-3.5); LYMPHOCYTES % (MANUAL) 4 %; MONOCYTES # (MANUAL) 0.9 10^3/uL (0.0-1.0); NEUTROPHILS # (MANUAL) 26.9 10^3/uL (1.5-6.6)
[2022-09-15 17:17] LABS: DIFFERENTIAL COMMENT MANUAL DIFFERENTIAL; PLATELET ESTIMATE, MANUAL NORMAL (130-450,000) (NORMAL); PLATELET MORPHOLOGY NORMAL APPEARANCE (NORMAL); RBC MORPHOLOGY (MULTIPLE) NORMAL APPEARANCE (NORMAL)
[2022-09-15] MEDS ORDERED: AMPICILLIN/SULBACTAM 3 GM in SODIUM CHLORIDE 0.9% MINIBAG 100 ML IV STA (17:17)
--- NOTE | 2022-09-15 17:18 | XRAY Report ---
PROCEDURE: Chest 2 View X-Ray INDICATIONS: reeval pna TECHNIQUE: 2 views of the chest were acquired. COMPARISON: 09/09/2022 FINDINGS: Surgical changes and devices: Left-sided cardiac pacer device is unchanged in positioning. Multiple m edian sternotomy wires are present. Mediastinal clips as before. Lungs and pleura: Interval enlargement of now moderate-large size right pleural effusion with associa carol compressive atelectasis. Concurrent right lung base consolidation redemonstrated. Mild diffuse in terstitial prominence. Improved aeration of the left hemithorax. No new focal consolidations noted. N o pneumothorax. Mediastinum: Mediastinal contours are normal. Heart size is normal. Bones and chest wall: No suspicious bony abnormalities. Soft tissues appear unremarkable. IMPRESSION: Interval increase in size of now moderate-large sized right pleural effusion with associated compress ivan atelectasis and concurrent right basilar airspace disease/pneumonia. Reviewed by: Alberto Park MD on 09/15/2022 5:17 PM PST Approved by: Alberto Park MD on 09/15/2022 5:17 PM PST Station ID: [id number]
--- NOTE | 2022-09-15 17:20 | ED Physician Documentation ---
PD HPI DYSPNEA - Stated complaint Stated Complaint: SOA - Chief complaint Chief Complaint: Resp - History obtained from History obtained from: Patient, Family - Additional information Additional information: 82-year-old gentleman with history of A. fib with cardiomyopathy, essence EF of 24%, later up to [address]. He is anticoagulated. He was seen at the clinic last week and diagnosed with pneumonia by x-ray, started on doxycycline. He was brought back for a scheduled recheck today and found to be no better with concerning lung sounds and was sent here for Further evaluation and treatment. They noted in the clinic that his blood pressure was 85/60 and did a CBC notable for a white count of 26.9 thousand. Review of Systems Ten Systems: 10 systems reviewed and negative Constitutional: reports: Chills. denies: Fever Respiratory: reports: Dyspnea, Cough PD PAST MEDICAL HISTORY - Past Medical History Cardiovascular: High cholesterol, Coronary artery disease, MA, Atrial fibrillation, Murmur, Other Respiratory: None Endocrine/Autoimmune: None GI: None : Benign prostate hypertrophy HEENT: Dental implants Psych: None Musculoskeletal: None Derm: None - Past Surgical History Past Surgical History: Yes Cardiovascular: CABG, Pacemaker HEENT: Cataracts - Present Medications Home Medications: Ambulatory Orders Medication Instructions Recorded Confirmed Benazepril HCl 10 mg PO 02/15/14 02/15/14 Cholecalciferol (Vitamin D3) 400 unit PO 02/15/14 02/15/14 [Vitamin D] Digoxin [Lanoxin] 125 mcg PO ONCE 02/15/14 02/15/14 Ezetimibe [Zetia] 10 mg PO QD 02/15/14 02/15/14 Ferrous Fumarate [Iron] 55 mg PO 02/15/14 02/15/14 Fluticasone Propionate [Flovent 50 mcg IH 02/15/14 02/15/14 Diskus] Folic Acid 0.4 mg PO DAILY 02/15/14 02/15/14 Gmitynsj-Zmzstcj-Mewg 149-Hyal 1 each PO 02/15/14 02/15/14 [Glucosamine Chondroitin Complx] Metoprolol Succinate 40 mg PO 02/15/14 02/15/14 Niacin [Niaspan] 1,000 mg PO 02/15/14 02/15/14 Olopatadine HCl [Patanol] 5 ml OP 02/15/14 02/15/14 Saw Faison Fruit/Zinc Picoli 1 each PO 02/15/14 02/15/14 [Saw Faison Capsule] Simvastatin 40 mg PO 02/15/14 02/15/14 Terazosin [Hytrin] 2 mg PO QPM 02/15/14 02/15/14 Triamterene/Hydrochlorothiazid 1 each PO 02/15/14 02/15/14 [Triamterene-Hctz 75-50 mg Tab] Warfarin Sodium [Coumadin] 4 mg PO 02/15/14 02/15/14 Zinc Gluconate-Zinc Picolinate 30 mg PO 02/15/14 02/15/14 [Zinc] Clindamycin HCl 300 mg PO Q6H #28 capsule 03/17/14 predniSONE [Deltasone] 40 mg PO DAILY 5 Days tablet 03/17/14 Docusate Sodium 250Mg Capsule 250 mg PO BID #30 capsule 04/05/16 [Colace] HYDROcod/ACETAM 5/325 [Middleton 5/325] 1 - 2 ea PO Q6H PRN #15 tablet 04/05/16 Cefdinir 300 mg PO BID #20 cap 09/15/22 metroNIDAZOLE [Flagyl] 500 mg PO BID 7 Days #14 tablet 09/15/22 - Allergies Allergies/Adverse Reactions: Allergies Allergy/AdvReac Type Severity Reaction Status Date / Time No Known Drug Allergies Allergy Verified 09/08/22 15:16 - Social History Does the pt smoke?: No Smoking Status: Former smoker Does the pt drink ETOH?: No Does the pt have substance abuse?: No - POLST Patient has POLST: No PD ED PE NORMAL - Vitals Vital signs reviewed: Yes - General General: Alert and oriented X 3, No acute distress - HEENT HEENT: PERRL, EOMI - Neck Neck: Supple, no meningeal sign, No bony TTP - Cardiac Cardiac: Other (irreg/irreg) - Respiratory Respiratory: No respiratory distress, Other (Absent breath sounds at the right base) - Abdomen Abdomen: Non tender - Back Back: No CVA TTP, No spinal TTP - Derm Derm: Normal color, Warm and dry - Extremities Extremities: No edema, No calf tenderness / cord - Neuro Neuro: Alert and oriented X 3, Normal speech Results - Vitals Vitals: Vital Signs - 24 hr 09/15/22 09/15/22 09/15/22 15:56 17:14 17:30 Temperature 36.5 C Heart Rate 75 77 68 Respiratory 16 23 18 Rate Blood Pressure 112/62 133/116 H 135/77 H O2 Saturation 97 98 95 09/15/22 09/15/22 09/15/22 18:00 19:00 19:51 Temperature Heart Rate 70 93 106 H Respiratory 23 20 19 Rate Blood Pressure 147/88 H 129/68 121/56 L O2 Saturation 96 96 96 09/15/22 09/15/22 09/15/22 20:10 20:25 20:56 Temperature Heart Rate 91 103 H 99 Respiratory 14 23 19 Rate Blood Pressure 103/77 112/64 101/55 L O2 Saturation 92 95 93 Oxygen O2 Source Room air - Labs Labs: Laboratory Tests 09/15/22 09/15/22 09/15/22 16:30 16:30 16:34 WBC 29.6 H RBC 4.27 L Hgb 13.0 L Hct 40.5 L MCV 94.8 H MCH 30.4 MCHC 32.1 RDW 13.8 Plt Count 284 MPV 10.0 Neut # (Auto) Not Reportable Lymph # (Auto) Not Reportable Ogle # (Auto) Not Reportable Eos # (Auto) Not Reportable Baso # (Auto) Not Reportable Absolute Nucleated RBC Not Reportable Total Counted 100 Band Neuts % (Manual) 4 Abnorm Lymph % (Manual) 0 Nucleated RBC % Not Reportable Neutrophils # (Manual) 26.9 H Lymphocytes # (Manual) 1.2 L Monocytes # (Manual) 0.9 Eosinophils # (Manual) 0.6 Basophils # (Manual) 0.0 Differential Comment MANUAL DIFFERENTIAL Platelet Estimate NORMAL (130-450,000) Platelet Morphology NORMAL APPEARANCE RBC Morph Micro Appear NORMAL APPEARANCE Sodium 135 Potassium 4.3 Chloride 102 Carbon Dioxide 22 Anion Gap 11.0 BUN 33 H Creatinine 1.3 H Estimated GFR (MDRD) 53 L Glucose 127 H Lactic Acid 1.3 Calcium 9.0 Total Bilirubin 1.1 H AST 97 H ALT 166 H Alkaline Phosphatase 112 Total Protein 7.4 Albumin 2.4 L Globulin 5.0 H Albumin/Globulin Ratio 0.5 L Fluid Source Fluid Color Fluid Clarity Fluid WBC Fluid RBC Nasal Adenovirus (PCR) Nasal B. parapertussis DNA (PCR) Nasal Coronavir 229E PCR Nasal Coronavir HKU1 PCR Nasal Coronavir NL63 PCR Nasal Coronavir OC43 PCR Nasal Enterovir/Rhinovir PCR Nasal Influenza B PCR Nasal Influenza A PCR Nasal Parainfluen 1 PCR Nasal Parainfluen 2 PCR Nasal Parainfluen 3 PCR Nasal Parainfluen 4 PCR Nasal RSV (PCR) Nasal B.pertussis DNA PCR Nasal C.pneumoniae (PCR) Christopher Human Metapneumo PCR Nasal M.pneumoniae (PCR) Nasal SARS-CoV-2 (PCR) 09/15/22 09/15/22 18:07 20:17 WBC RBC Hgb Hct MCV MCH MCHC RDW Plt Count MPV Neut # (Auto) Lymph # (Auto) Ogle # (Auto) Eos # (Auto) Baso # (Auto) Absolute Nucleated RBC Total Counted Band Neuts % (Manual) Abnorm Lymph % (Manual) Nucleated RBC % Neutrophils # (Manual) Lymphocytes # (Manual) Monocytes # (Manual) Eosinophils # (Manual) Basophils # (Manual) Differential Comment Platelet Estimate Platelet Morphology RBC Morph Micro Appear Sodium Potassium Chloride Carbon Dioxide Anion Gap BUN Creatinine Estimated GFR (MDRD) Glucose Lactic Acid Calcium Total Bilirubin AST ALT Alkaline Phosphatase Total Protein Albumin Globulin Albumin/Globulin Ratio Fluid Source PLEURAL Fluid Color YELLOW Fluid Clarity CLOUDY Fluid WBC 6647 Fluid RBC 6000 Nasal Adenovirus (PCR) NOT DETECTED Nasal B. parapertussis DNA (PCR) NOT DETECTED Nasal Coronavir 229E PCR NOT DETECTED Nasal Coronavir HKU1 PCR NOT DETECTED Nasal Coronavir NL63 PCR NOT DETECTED Nasal Coronavir OC43 PCR NOT DETECTED Nasal Enterovir/Rhinovir PCR NOT DETECTED Nasal Influenza B PCR NOT DETECTED Nasal Influenza A PCR NOT DETECTED Nasal Parainfluen 1 PCR NOT DETECTED Nasal Parainfluen 2 PCR NOT DETECTED Nasal Parainfluen 3 PCR NOT DETECTED Nasal Parainfluen 4 PCR NOT DETECTED Nasal RSV (PCR) NOT DETECTED Nasal B.pertussis DNA PCR NOT DETECTED Nasal C.pneumoniae (PCR) NOT DETECTED Christopher Human Metapneumo PCR NOT DETECTED Nasal M.pneumoniae (PCR) NOT DETECTED Nasal SARS-CoV-2 (PCR) NOT DETECTED - Rads (name of study) 2 view chest x-ray demonstrates worsened now large right pleural effusion with right basilar pneumonia Radiology: EMP read contemporaneously Procedures - Thoracentesis Preparation: Consent obtained, Sterile prep and drape, Sitting Technique: Catheter over needle, Right, Ultrasound used Fluid: Clear, Sent for cell count, Sent for culture, Other (Flow was very sluggi sh despite the fluid being fairly clear. The catheter was repositioned several times without improvement and I was only able to obtain about 400 mL.) Aftercare: CXR obtained PD MEDICAL DECISION MAKING - ED course ED course: 82-year-old gentleman with pneumonia failed outpatient treatment with parapneumonic effusion that is growing versus empyema less likely after CT imaging. I had a long discussion with the patient and his . Normal plan of care would be to transfer him to another hospital for evaluation by cardiothoracic surgery, potential thoracentesis versus chest tube versus VATS. But discussed with him and his that currently hospital capacity issues in [facility] would probably mandate a stay of approximately 3 days in this emergency department pending transfer. They were understandably incredulous and we discussed other options including a trial at thoracentesis here, but noting that given that he is anticoagulated risks are higher, and if purulent material was drained, he would still need to eventually be transferred. After much discussion and consideration of risks and benefits as well as alternatives he opted for attempted thoracentesis here. Thoracentesis went well but unfortunately the catheter was fairly temperamental and I was only Able to get about 400 mL out. Postprocedural x-ray shows no complication but it did not look like the effusion had improved much, that said he felt much better and much more energetic and at that point wanted to go home. I gave very close return precautions. Since it did not look like a empyema, just a parapneumonic effusion this is not unreasonable. I did offer admission for repeat attempt at thoracentesis by IR tomorrow versus attempt at transfer to a higher level of care. He and his at the bedside declined. Departure - Departure Disposition: 01 Home, Self Care Clinical Impression: Adequate anticoagulation on anticoagulant therapy Pneumonia Qualifiers: Pneumonia type: due to unspecified organism Laterality: right Lung location: lower lobe of lung Qualified Code(s): J18.9 - Pneumonia, unspecified organism Condition: Good Record reviewed to determine appropriate education?: Yes Instructions: Pneumonia Dc Prescriptions: Cefdinir 300 mg PO BID #20 cap metroNIDAZOLE [Flagyl] 500 mg PO BID 7 Days #14 tablet Comments: You were seen today for persistent pneumonia with a parapneumonic effusion. We were able to get some of the fluid out, but probably only a minority of it, that said you were able to breathe better and feel better after this. I am changing her antibiotics up, and I want you to return immediately if you are feeling worse. Follow-up with your primary care physician, at a minimum you will need repeat radiographs in a week or 2 to assess how much fluid is left at that point.
--- NOTE | 2022-09-15 18:52 | CT Report ---
PROCEDURE: CHEST W INDICATIONS: Pneumonia, possible empyema CONTRAST:100ml Omnipaque 300 TECHNIQUE: After the administration of intravenous contrast, 1 mm axial images were acquired from the pulmonary apices through the posterior costophrenic angles. Axial 5 mm soft tissue kernel reconstructions were performed as well as 8 mm axial MIP and coronal and sagittal 5 mm reformations. For radiation dose reduction, the following was used: automated exposure control, adjustment of mA and/or kV according to patient size. COMPARISON: Chest radiograph from earlier same day and 09/09/2022. CT abdomen and pelvis dated 2017. FINDINGS: Image quality: Diagnostic. Lungs and pleura: There is a moderate-large sized loculated right pleural effusion with associated c ompressive atelectasis. No evidence for significant enhancement of the pleura. Otherwise, no suspicio us pulmonary mass or nodules. No septal nodularity. Visualized airways appear clear. Multiple scatter ed coarse calcifications noted in the right lower lobe. No acute air space opacities. No pleural eff usions or pneumothorax. Central and peripheral airways are patent and normal in caliber. Mediastinum: Heart size is normal. No pericardial effusion. Atherosclerotic calcifications are note d in the coronary arteries. No mediastinal or hilar adenopathy by size criteria. Thoracic aorta and central pulmonary arteries are normal in size. Esophagus is normal in caliber. No hiatal hernia. Bones and chest wall: No suspicious bony lesions. Multilevel spondylosis of the imaged spine. No ac arabella vertebral body compression fractures. Multiple median sternotomy wires. No substernal fluid denia ection. No axillary or supraclavicular adenopathy by size criteria. The thyroid is normal in size an d there are no incidental findings.. Abdomen: Visualized upper abdominal solid organs demonstrate persistent scattered hepatic hypodensit ies compatible with cysts. Multiple bilateral renal cysts are also not significantly changed.. Upper abdominal bowel loops are normal in caliber. IMPRESSION: 1. Moderate-large sized loculated right pleural effusion without abnormal pleural enhancement to sugg est empyema at this time. Associated compressive atelectasis. 2. Atherosclerosis. 3. No acute airspace disease identified. Other chronic findings as above. CLINICAL RECOMMENDATION STATEMENTS: In patients <35 years with an ITN detected on CT, MRI, or extrathyroidal ultrasound, the Committee re commends further evaluation with dedicated thyroid ultrasound if the nodule is "e1 cm and has no susp icious imaging features, and if the patient has normal life expectancy. In patients "e35 years with an ITN detected on CT, MRI, or extrathyroidal ultrasound, the Committee r ecommends further evaluation with dedicated thyroid ultrasound if the nodule is "e1.5 cm and has no s uspicious imaging features, and if the patient has normal life expectancy. (ACR, 2014) Reviewed by: Alberto Park MD on 09/15/2022 6:51 PM PST Approved by: Alberto Park MD on 09/15/2022 6:51 PM PST Station ID: [id number]
[2022-09-15 19:15] LABS: B. PARAPERTUSSIS- RESP PCR PAN NOT DETECTED; B. PERTUSSIS- RESP PCR PANEL NOT DETECTED; C. PNEUMONIAE- RESP PCR PANEL NOT DETECTED; CORONAVIRUS 229E-RESP PCR NOT DETECTED; CORONAVIRUS HKU1-RESP PCR NOT DETECTED; CORONAVIRUS NL63-RESP PCR NOT DETECTED; CORONAVIRUS OC43-RESP PCR NOT DETECTED; HUMAN METAPNEUMOVIRUS NOT DETECTED; INFLUENZA A- RESP PCR PANEL NOT DETECTED; INFLUENZA B - RESP PCR PANEL NOT DETECTED; M. PNEUMONIAE- RESP PCR PANEL NOT DETECTED; PARAINFLUENZA VIRUS 1 NOT DETECTED; PARAINFLUENZA VIRUS 2 NOT DETECTED; PARAINFLUENZA VIRUS 3 NOT DETECTED; PARAINFLUENZA VIRUS 4 NOT DETECTED; RHINOVIRUS/ENTEROVIRUS NOT DETECTED; RSV- RESP PCR PANEL NOT DETECTED; SARS-CoV-2 -RESP PCR PANEL NOT DETECTED
[2022-09-15] MEDS ORDERED: LIDOCAINE MPF 2%-EPI 1:200000 20 ML VIAL SUBQ ONE (19:24)
[2022-09-15] MEDS ORDERED: MIDAZOLAM 2 MG/2 ML VIAL IVP STA (19:24)
[2022-09-15 20:51] LABS: BF CLARITY CLOUDY; BF COLOR YELLOW; BF SOURCE PLEURAL; CC,BF RBC 6000 /mm^3; CC,BF WBC 6647 /mm^3
--- NOTE | 2022-09-15 21:30 | XRAY Report ---
PROCEDURE: Chest 1 View X-Ray INDICATIONS: Postthoracentesis TECHNIQUE: One view of the chest was acquired. COMPARISON: CT chest earlier today. CXR earlier today, 09/09/2022. FINDINGS: Surgical changes and devices: Left pacemaker with right ventricular AICD lead and coronary sinus mayra d. Post median sternotomy and CABG. Lungs and pleura: No pneumothorax. Opacity occupying a large portion of the right hemithorax consist ent with pleural effusion and airspace opacity as seen on CT. Right pleural effusion is not significa ntly changed. Left lung is clear. No left pleural effusion. Mediastinum: Mediastinal contours appear unchanged. Heart size is normal. Bones and chest wall: No suspicious bony lesions. Overlying soft tissues appear unremarkable. IMPRESSION: No pneumothorax post right-sided thoracentesis. Moderate loculated right pleural effusion. Reviewed by: Bernard Leyva MD on 09/15/2022 9:29 PM PST Approved by: Bernard Leyva MD on 09/15/2022 9:29 PM PST Station ID: [id number]
[2022-09-15 22:03] LABS: LYMPHOCYTES %,BODY FLUID 16 %; NEUTROPHILS %, BF 84 %
[2022-09-15 22:05] VITALS: BP 108/58
[2022-09-16] MEDS ORDERED: iohexoL-300 100 ML VIAL IVP ONE (02:48)
== END 2022-09-15 22:03 | disposition home or self-care (01) ==
LOC: ED 15:51
DX: J18.9 Pneumonia, unspecified organism (principal); J90 Pleural effusion, not elsewhere classified; I48.91 Unspecified atrial fibrillation; Z79.01 Long term (current) use of anticoagulants; I25.10 Atherosclerotic heart disease of native coronary artery without angina pectoris; I25.2 Old myocardial infarction; Z95.1 Presence of aortocoronary bypass graft; Z95.810 Presence of automatic (implantable) cardiac defibrillator; I42.9 Cardiomyopathy, unspecified; Z87.891 Personal history of nicotine dependence; I50.9 Heart failure, unspecified; Z20.822 Contact with and (suspected) exposure to COVID-19
CPT/HCPCS: 32554; 36415; 71045; 71046; 71260; 80053; 83605; 83880; 85025; 87040; 87070; 87205; 87633; 89051; 96365; 96375; 99284; Q9967

== ENCOUNTER 2022-09-22 10:46 | Outpatient (CLI) | payer MEDICARE, OTHER ==
[2022-09-22 14:43] LABS: BASOPHILS % (AUTO) 0.1 %; EOSINOPHILS % (AUTO) 0.3 %; HCT - HEMATOCRIT 39.6 % (42.0-52.0); HGB - HEMOGLOBIN 12.5 g/dL (14.0-18.0); LYMPHOCYTES % (AUTO) 10.9 %; MEAN CORPUSCULAR HEMOGLOBIN 30.7 pg (27.0-31.0); MEAN CORPUSCULAR HGB CONC 31.6 g/dL (32.0-36.0); MEAN CORPUSCULAR VOLUME 97.3 fL (80.0-94.0); MEAN PLATELET VOLUME 10.1 fL (7.4-11.4); MONOCYTES % (AUTO) 6.2 %; NEUTROPHILS % (AUTO) 81.3 %; PLT - PLATELET COUNT 366 10^3/uL (130-450); RED BLOOD COUNT 4.07 10^6/uL (4.70-6.10)
[2022-09-22 14:46] LABS: ABNORMAL LYMPHS % (MANUAL) 0 %
[2022-09-22 15:42] LABS: ALBUMIN 2.7 g/dL (3.2-5.5); ALBUMIN/GLOBULIN RATIO 0.6 (1.0-2.2); ALKALINE PHOSPHATASE 81 IU/L (42-121); ALT ALANINE AMINOTRANSFERASE 50 IU/L (10-60); AST ASPARTATE AMINOTRANSFERASE 26 IU/L (10-42); BILIRUBIN,TOTAL 0.8 mg/dL (0.2-1.0); BUN - BLOOD UREA NITROGEN 22 mg/dL (6-20); CARBON DIOXIDE - CO2 24 mmol/L (21-32); CHLORIDE 104 mmol/L (101-111); CHOL/HDL RATIO 4.4 (<5.0); CHOLESTEROL 88 mg/dL; CREATININE 1.1 mg/dL (0.6-1.2); GFR - MDRD 64 (>89); GLUCOSE 112 mg/dL (70-100); HDL CHOLESTEROL 20 mg/dL; LDL CHOLESTEROL,CALCULATED 48 mg/dL; LDL/HDL RATIO 2.4 (<3.6); POTASSIUM 4.4 mmol/L (3.5-5.0); SODIUM 138 mmol/L (135-145); TOTAL PROTEIN 6.9 g/dL (6.7-8.2); TRIGLYCERIDES 99 mg/dL; VLDL CHOLESTEROL 20 mg/dL
[2022-09-22 15:45] LABS: BAND NEUTROPHILS % (MANUAL) 1 %; LYMPHOCYTES % (MANUAL) 15 %; MONOCYTES # (MANUAL) 0.8 10^3/uL (0.0-1.0); NEUTROPHILS # (MANUAL) 16.2 10^3/uL (1.5-6.6); NUCLEATED RBC (MANUAL) 1 %
[2022-09-22 15:46] LABS: DIFFERENTIAL COMMENT MANUAL DIFFERENTIAL; PLATELET ESTIMATE, MANUAL NORMAL (130-450,000) (NORMAL); PLATELET MORPHOLOGY NORMAL APPEARANCE (NORMAL); RBC MORPHOLOGY (MULTIPLE) NORMAL APPEARANCE (NORMAL); WBC MORPHOLOGY (MULTIPLE) 1+ TOXIC GRANULATION (NORMAL)
== END 2022-09-22 10:47 | disposition home or self-care (01) ==
LOC: LAB.S 10:46
PROVIDERS: ATTEND Nurse Practitioner
DX: E78.5 Hyperlipidemia, unspecified (principal); J18.9 Pneumonia, unspecified organism; Z79.899 Other long term (current) drug therapy; Z13.29 Encounter for screening for other suspected endocrine disorder
CPT/HCPCS: 36415; 80053; 80061; 83721; 84443; 85025

== ENCOUNTER 2022-09-22 15:29 | Outpatient (CLI) | payer MEDICARE, OTHER ==
--- NOTE | 2022-09-22 11:42 | XRAY Report ---
PROCEDURE: Chest 2 View X-Ray INDICATIONS: PLEURAL EFFUSION, PNA TECHNIQUE: 2 views of the chest were acquired. COMPARISON: CXR and CT chest 09/15/2022. FINDINGS: Surgical changes and devices: Left pacemaker with right ventricular AICD lead. Coronary sinus lead. Post median sternotomy and CABG. Lungs and pleura: Loculated right pleural effusion appears decreased. Right lower lobe airspace opaci ty is decreased. No pneumothorax. No left pleural effusion. Mediastinum: Mediastinal contours are unchanged. Heart size is within normal limits. Bones and chest wall: No suspicious bony abnormalities. Soft tissues appear unremarkable. IMPRESSION: Loculated right pleural effusion is decreased. Right lower lobe airspace opacity is decreased. Reviewed by: Bernard Leyva MD on 09/22/2022 11:41 AM PST Approved by: Bernard Leyva MD on 09/22/2022 11:41 AM PST Station ID: [id number]
== END 2022-09-22 15:30 | disposition home or self-care (01) ==
LOC: DI.S 15:29
PROVIDERS: ATTEND Nurse Practitioner
DX: J90 Pleural effusion, not elsewhere classified (principal); J18.9 Pneumonia, unspecified organism; E78.5 Hyperlipidemia, unspecified; Z79.899 Other long term (current) drug therapy; Z13.29 Encounter for screening for other suspected endocrine disorder
CPT/HCPCS: 36415; 80053; 80061; 83721; 84443; 85025

== ENCOUNTER 2022-10-06 10:56 | Outpatient (CLI) | payer MEDICARE, OTHER ==
--- NOTE | 2022-10-06 14:24 | XRAY Report ---
PROCEDURE: Chest 2 View X-Ray INDICATIONS: X RAY TECHNIQUE: 2 views of the chest were acquired. COMPARISON: Chest film dated 09/22/2022, chest CT dated 09/15/2022 FINDINGS: Surgical changes and devices: Remote CABG, pacer.. Lungs and pleura: Findings are very similar to the most recent prior chest x-ray. Again noted is a mu ltiloculated at least moderate right pleural effusion and right basilar lung collapse. Left lung juni ins grossly clear. Mediastinum: Mediastinal contours are normal. Mild cardiomegaly. Bones and chest wall: No suspicious bony abnormalities. Soft tissues appear unremarkable. IMPRESSION: Unchanged size and appearance of multiloculated moderate right pleural effusion. Unchanged atelectasi s in the right lung. Reviewed by: Ruben Garza MD on 10/06/2022 2:23 PM PST Approved by: Ruben Garza MD on 10/06/2022 2:23 PM PST Station ID: [id number]
== END 2022-10-06 10:57 | disposition home or self-care (01) ==
LOC: DI.S 10:56
PROVIDERS: ATTEND Nurse Practitioner
DX: J90 Pleural effusion, not elsewhere classified (principal); J98.11 Atelectasis

== ENCOUNTER 2022-12-12 09:58 | Outpatient (CLI) | payer MEDICARE, OTHER ==
[2022-12-12 10:44] LABS: ALBUMIN 3.6 g/dL (3.2-5.5); ALBUMIN/GLOBULIN RATIO 1.1 (1.0-2.2); ALKALINE PHOSPHATASE 51 IU/L (42-121); ALT ALANINE AMINOTRANSFERASE 20 IU/L (10-60); AST ASPARTATE AMINOTRANSFERASE 19 IU/L (10-42); BILIRUBIN,TOTAL 0.7 mg/dL (0.2-1.0); BUN - BLOOD UREA NITROGEN 20 mg/dL (6-20); CALCIUM 9.2 mg/dL (8.5-10.3); CARBON DIOXIDE - CO2 25 mmol/L (21-32); CHLORIDE 107 mmol/L (101-111); CHOL/HDL RATIO 3.1 (<5.0); CHOLESTEROL 105 mg/dL; CK- CREATINE KINASE 70 IU/L (22-269); CREATININE 1.1 mg/dL (0.6-1.2); DIGOXIN 0.5 ng/mL; GFR - MDRD 64 (>89); GLUCOSE 123 mg/dL (70-100); HDL CHOLESTEROL 34 mg/dL; LDL CHOLESTEROL,CALCULATED 57 mg/dL; LDL CHOLESTEROL,DIRECT 52 mg/dL; LDL/HDL RATIO 1.7 (<3.6); POTASSIUM 4.5 mmol/L (3.5-5.0); SODIUM 139 mmol/L (135-145); TRIGLYCERIDES 71 mg/dL; VLDL CHOLESTEROL 14 mg/dL
== END 2022-12-12 09:59 | disposition home or self-care (01) ==
LOC: LAB 09:58
PROVIDERS: ATTEND Internal Medicine Cardiovascular Disease
DX: I95.9 Hypotension, unspecified (principal); I25.10 Atherosclerotic heart disease of native coronary artery without angina pectoris; I25.5 Ischemic cardiomyopathy; I50.22 Chronic systolic (congestive) heart failure; E78.5 Hyperlipidemia, unspecified; R53.83 Other fatigue
CPT/HCPCS: 36415; 80053; 80061; 80162; 82550; 83721; 83880

== ENCOUNTER 2023-10-13 08:59 | Outpatient (CLI) | payer MEDICARE, OTHER ==
[2023-10-13 15:23] LABS: BASOPHILS % (AUTO) 0.3 %; EOSINOPHILS # (AUTO) 0.2 10^3/uL (0.0-0.7); EOSINOPHILS % (AUTO) 2.5 %; HCT - HEMATOCRIT 40.6 % (42.0-52.0); HGB - HEMOGLOBIN 13.1 g/dL (14.0-18.0); LYMPHOCYTES # (AUTO) 1.8 10^3/uL (1.5-3.5); LYMPHOCYTES % (AUTO) 25.1 %; MEAN CORPUSCULAR HEMOGLOBIN 32.5 pg (27.0-31.0); MEAN CORPUSCULAR HGB CONC 32.3 g/dL (32.0-36.0); MEAN CORPUSCULAR VOLUME 100.7 fL (80.0-94.0); MEAN PLATELET VOLUME 11.4 fL (7.4-11.4); MONOCYTES # (AUTO) 0.7 10^3/uL (0.0-1.0); MONOCYTES % (AUTO) 9.2 %; NEUTROPHILS # (AUTO) 4.6 10^3/uL (1.5-6.6); NEUTROPHILS % (AUTO) 62.5 %; PLT - PLATELET COUNT 115 10^3/uL (130-450); RED BLOOD COUNT 4.03 10^6/uL (4.70-6.10); WHITE BLOOD COUNT 7.3 x10^3/uL (4.8-10.8)
[2023-10-13 15:32] LABS: ALBUMIN 3.9 g/dL (3.2-5.5); ALBUMIN/GLOBULIN RATIO 1.6 (1.0-2.2); ALKALINE PHOSPHATASE 66 IU/L (42-121); ALT ALANINE AMINOTRANSFERASE 22 IU/L (10-60); AST ASPARTATE AMINOTRANSFERASE 20 IU/L (10-42); BUN - BLOOD UREA NITROGEN 18 mg/dL (6-20); CALCIUM 9.4 mg/dL (8.5-10.3); CARBON DIOXIDE - CO2 31 mmol/L (21-32); CHLORIDE 105 mmol/L (101-111); CHOL/HDL RATIO 3.2 (<5.0); CHOLESTEROL 107 mg/dL; CREATININE 1.1 mg/dL (0.6-1.3); GFR - MDRD 64 (>89); GLUCOSE 91 mg/dL (74-104); HDL CHOLESTEROL 33 mg/dL; LDL CHOLESTEROL,CALCULATED 56 mg/dL; LDL/HDL RATIO 1.7 (<3.6); POTASSIUM 4.5 mmol/L (3.5-4.5); SODIUM 140 mmol/L (135-145); TOTAL PROTEIN 6.3 g/dL (6.4-8.9); TRIGLYCERIDES 90 mg/dL (48-352); VLDL CHOLESTEROL 18 mg/dL
[2023-10-13 15:39] LABS: THYROID STIMULATING HORMONE 2.73 uIU/mL (0.34-5.60)
== END 2023-10-13 09:00 | disposition home or self-care (01) ==
LOC: LAB.S 08:59
PROVIDERS: ATTEND Registered Nurse
DX: E78.5 Hyperlipidemia, unspecified (principal); Z79.899 Other long term (current) drug therapy; Z13.29 Encounter for screening for other suspected endocrine disorder
CPT/HCPCS: 36415; 80053; 80061; 83721; 84443; 85025

== ENCOUNTER 2023-10-27 07:00 | Outpatient (CLI) | payer MEDICARE, OTHER ==
--- NOTE | 2023-10-27 16:05 | XRAY Report ---
PROCEDURE: Chest 2V INDICATIONS: ACUTE COUGH TECHNIQUE: 2 views of the chest were acquired. COMPARISON: Chest x-ray, 10/06/2022. FINDINGS: Surgical changes and devices: A cardiac pacemaker is present with leads in expected position. Sterno ruddy and CABG. Lungs and pleura: There is a small right perfusion. No pneumothorax. No confluent pulmonary edema. Mediastinum: Mediastinal contours appear normal. Heart size is normal. Bones and chest wall: No suspicious bony lesions. Overlying soft tissues appear unremarkable. IMPRESSION: Small right pleural effusion. Reviewed by: Brennan Franklin MD on 10/27/2023 4:03 PM PST Approved by: Brennan Franklin MD on 10/27/2023 4:03 PM PST Station ID: [id number]
== END 2023-10-27 23:59 | disposition home or self-care (01) ==
LOC: DI.S 07:00
PROVIDERS: ATTEND Registered Nurse
DX: J90 Pleural effusion, not elsewhere classified (principal); R06.02 Shortness of breath

== ENCOUNTER 2023-10-27 08:00 | Outpatient (CLI) | payer MEDICARE, OTHER | END 2023-10-27 08:01 | disposition home or self-care (01) | LOC: LAB.S 08:00 | PROVIDERS: ATTEND Registered Nurse | DX: R06.02 Shortness of breath (principal) ==

== ENCOUNTER 2024-03-02 14:05 | Outpatient (CLI) | payer MEDICARE, OTHER ==
[2024-03-02 21:41] LABS: ALBUMIN 3.8 g/dL (3.2-5.5); ALBUMIN/GLOBULIN RATIO 1.6 (1.0-2.2); ALKALINE PHOSPHATASE 58 IU/L (42-121); ALT ALANINE AMINOTRANSFERASE 20 IU/L (10-60); AST ASPARTATE AMINOTRANSFERASE 18 IU/L (10-42); BILIRUBIN,TOTAL 0.8 mg/dL (0.2-1.0); BUN - BLOOD UREA NITROGEN 18 mg/dL (6-20); CALCIUM 9.5 mg/dL (8.5-10.3); CARBON DIOXIDE - CO2 25 mmol/L (21-32); CHLORIDE 111 mmol/L (101-111); CHOL/HDL RATIO 2.8 (<5.0); CHOLESTEROL 87 mg/dL; CK- CREATINE KINASE 45 IU/L (30-223); CREATININE 1.3 mg/dL (0.6-1.3); DIGOXIN 0.3 ng/mL; GFR - MDRD 53 (>89); GLUCOSE 98 mg/dL (74-104); HDL CHOLESTEROL 31 mg/dL; LDL CHOLESTEROL,CALCULATED 33 mg/dL; LDL CHOLESTEROL,DIRECT 43 mg/dL (75-193); LDL/HDL RATIO 1.1 (<3.6); POTASSIUM 4.3 mmol/L (3.5-4.5); SODIUM 141 mmol/L (135-145); TOTAL PROTEIN 6.2 g/dL (6.4-8.9); TRIGLYCERIDES 115 mg/dL (48-352); VLDL CHOLESTEROL 23 mg/dL
== END 2024-03-02 14:06 | disposition home or self-care (01) ==
LOC: LAB.S 14:05
PROVIDERS: ATTEND Internal Medicine Cardiovascular Disease
DX: I10 Essential (primary) hypertension (principal); E78.00 Pure hypercholesterolemia, unspecified; I48.92 Unspecified atrial flutter
CPT/HCPCS: 36415; 80053; 80061; 80162; 82550; 83721; 83880

== ENCOUNTER 2024-03-24 07:00 | Outpatient (CLI) | payer MEDICARE, OTHER ==
--- NOTE | 2024-03-24 15:33 | XRAY Report ---
PROCEDURE: Chest 2V INDICATIONS: PRODUCTIVE COUGH TECHNIQUE: 2 views of the chest were acquired. COMPARISON: 10/27/2023. FINDINGS: Surgical changes and devices: Left chest wall pacemaker. Median sternotomy wires. Lungs and pleura: No pleural effusions or pneumothorax. Stable mild blunting of the right costophre mike angle. Lungs are otherwise clear. Mediastinum: Mediastinal contours appear normal. Heart size is normal. Bones and chest wall: No suspicious bony lesions. Overlying soft tissues appear unremarkable. IMPRESSION: Stable mild blunting of the right costophrenic angle. Otherwise, no acute cardiopulmonary process. Reviewed by: Darian White MD on 03/24/2024 2:32 PM FAITH Approved by: Darian White MD on 03/24/2024 2:32 PM FAITH Station ID: [id number]
== END 2024-03-24 23:59 | disposition home or self-care (01) ==
LOC: DI.S 07:00
PROVIDERS: ATTEND Physician Assistant Medical
DX: R05.8 Other specified cough (principal)

== ENCOUNTER 2024-03-24 08:00 | Outpatient (CLI) | payer MEDICARE, OTHER | END 2024-03-24 08:01 | disposition home or self-care (01) | LOC: LAB.S 08:00 | PROVIDERS: ATTEND Physician Assistant Medical | DX: R05.1 Acute cough (principal) ==